=== PATIENT | male | born 1970 | race African-American/Black ===

== ENCOUNTER 2018-04-11 09:00 | Emergency (ER) | payer OTHER ==
[~2018-04-11] VITALS: Ht 180.3 cm; Wt 120.2 kg
[~2018-04-11 09:00] MED LIST: NORFLEX100 MG PO; VICODIN 5-5001 EACH PO
[2018-04-11 09:04] VITALS: BP 174/119
[2018-04-11] MEDS ORDERED: FLAGYL500 MG PO (09:18)
[2018-04-11 09:25] LABS: URINE BILIRUBIN NEGATIVE (Negative); URINE BLOOD TRACE (Negative); URINE CLARITY CLEAR; URINE COLOR YELLOW; URINE GLUCOSE-RANDOM NEGATIVE (Negative); URINE KETONES NEGATIVE (Negative); URINE LEUKOCYTES-REFLEX NEGATIVE (Negative); URINE NITRITE-REFLEX NEGATIVE (Negative); URINE PROTEIN NEGATIVE (Negative); URINE UROBILINOGEN 0.2 E.U./dl (0.2-1.0)
== END 2018-04-11 09:31 | disposition home or self-care (01) ==
LOC: M.ERS 09:00
PROVIDERS: Family Medicine
DX: Z20.2 Contact with and (suspected) exposure to infections with a predominantly sexual mode of transmission (principal)

== ENCOUNTER 2019-01-30 08:08 | Emergency (ER) | payer OTHER ==
[~2019-01-30] VITALS: Ht 180.3 cm; Wt 117.0 kg
[~2019-01-30 08:08] MED LIST changes: +FLAGYL500 MG PO
[2019-01-30] MEDS ORDERED: NOHOMEMEDICATIONS (08:23)
[2019-01-30 08:28] LABS: URINE BILIRUBIN NEGATIVE (Negative); URINE BLOOD TRACE (Negative); URINE CLARITY CLEAR; URINE COLOR YELLOW; URINE GLUCOSE-RANDOM NEGATIVE (Negative); URINE KETONES NEGATIVE (Negative); URINE LEUKOCYTES-REFLEX NEGATIVE (Negative); URINE NITRITE-REFLEX NEGATIVE (Negative); URINE PROTEIN NEGATIVE (Negative); URINE SPECIFIC GRAVITY 1.015 (1.005-1.030); URINE UROBILINOGEN 0.2 E.U./dl (0.2-1.0)
[2019-01-30 09:32] LABS: CALCIUM 8.8 mg/dL (8.5-10.1); CREATININE 0.9 mg/dL (0.6-1.3); POTASSIUM 3.6 mmol/L (3.5-5.1)
[2019-01-30] MEDS ORDERED: HYDROCHLOROTHIA25 M2 PO (09:52)
[2019-01-30 10:09] VITALS: BP 167/106
== END 2019-01-30 10:10 | disposition home or self-care (01) ==
LOC: M.ERS 08:08
PROVIDERS: Emergency Medicine Emergency Medical Services
DX: L91.8 Other hypertrophic disorders of the skin (principal); I10 Essential (primary) hypertension

== ENCOUNTER 2020-08-26 09:39 | Emergency (ER) | payer OTHER ==
[~2020-08-26] VITALS: Ht 180.3 cm; Wt 122.5 kg
[~2020-08-26 09:39] MED LIST changes: +HYDROCHLOROTHIA25 M2 PO; +NOHOMEMEDICATIONS
[2020-08-26] MEDS ORDERED: ZESTRIL40 MG PO (09:48)
[2020-08-26] MEDS ORDERED: PENICILLIN VK500 MG PO (10:03)
[2020-08-26] MEDS ORDERED: HYDROCODON-ACE1 EAC7 PO (10:03)
[2020-08-26 10:12] VITALS: BP 187/78
== END 2020-08-26 10:12 | disposition home or self-care (01) ==
LOC: M.ERS 09:39
DX: K02.9 Dental caries, unspecified (principal); K04.01 Reversible pulpitis; I10 Essential (primary) hypertension

== ENCOUNTER 2021-01-20 09:26 | Emergency (ER) | payer OTHER ==
[~2021-01-20] VITALS: Ht 180.3 cm; Wt 72.6 kg
[~2021-01-20 09:26] MED LIST changes: +HYDROCODON-ACE1 EAC7 PO; +PENICILLIN VK500 MG PO; +ZESTRIL40 MG PO
[2021-01-20 10:00] LABS: HEMATOCRIT 41.3 % (42.0-52.0); HEMOGLOBIN 13.8 gm/dL (14.0-18.0); MCH 29.6 pg (26.0-34.0); MCHC 33.5 g/dL (28.0-37.0); MCV 88.6 fL (80.0-100.0); MPV 9.3 fl. (7.2-11.1); RBC 4.67 mil/uL (4.50-6.00); RDW-CV 13.7 % (10.5-14.5); WBC 4.7 thou/uL (4.0-11.0)
[2021-01-20 10:08] LABS: CALCIUM 8.4 mg/dL (8.5-10.1); CREATININE 0.9 mg/dL (0.6-1.3); POTASSIUM 3.4 mmol/L (3.5-5.1)
[2021-01-20 11:20] VITALS: BP 186/119
--- NOTE | 2021-01-21 11:44 | EKG ---
[place] [address] ELECTROCARDIOGRAM REPORT Name: NAVEEN FREY JR [id number] Admission: 01/20/21 Attend Phys: Discharge: 01/20/21 Date of : 70 Date of Service: 01/20/21 1003 Report #: [id number] THIS REPORT FOR: //name// [facility] ED Test Date: 2021-01-20 Test Time: 10:03:25 Pat Name: NAVEEN FREY Department: Room: Gender: Media Librarian: : 1970 Requested By: Faustino Silver Order Number: [id number] MD: Ganesh Corrigan Measurements Intervals [place] Rate: 83 P: 50 SC: 143 QRS: -21 QRSD: 100 T: 120 QT: 383 QTc: 450 Interpretive Statements Sinus rhythm Probable left atrial enlargement LVH with secondary repolarization abnormality No previous ECG available for comparison Electronically Signed On 01-21-2021 11:44:01 CDT by Ganesh Corrigan [email or web address] <ELECTRONICALLY SIGNED> By: Ganesh Corrigan MD, [facility] 01/21/21 1144 1003 1003 Ganesh Corrigan MD, [facility] /EPI
== END 2021-01-20 11:20 | disposition home or self-care (01) ==
LOC: M.ERS 09:26
PROVIDERS: Emergency Medicine Emergency Medical Services
DX: I10 Essential (primary) hypertension (principal)